=== PATIENT | male | born 1980 | race African-American/Black ===

== ENCOUNTER 2020-03-27 12:58 | Emergency (ER) | payer SELFPAY ==
[2020-03-27] MEDS ORDERED: cefTRIAXone 250 MG in Lidocaine 1% 1 ML IM ONE (13:23)
[2020-03-27] MEDS ORDERED: Azithromycin 250 MG Tab PO STA (13:23)
--- NOTE | 2020-03-27 13:30 | EDM.PDOC ---
ED HPI GENERAL MEDICAL PROBLEM - General Chief Complaint: Genitourinary Problem Stated Complaint: STD Time Seen by Provider: 03/27/20 13:09 Source of Information: Reports: Patient History Limitations: Reports: No Limitations - History of Present Illness INITIAL COMMENTS - FREE TEXT/NARRATIVE: HISTORY AND PHYSICAL: History of present illness: It is a 40-year-old male who presents to the emergency room with complaints of penile lesion and drainage. He states he had unprotected sex approximately a week ago and was informed a few days ago that his partner had herpes. He notic ed some painful lesions to the shaft of his penis. He is also concerned as he did notice some drainage from his penis, states it was minimal but is concerned of other STDs. Patient denies any fever, chills, headache, change in vision, syncope or near syncope. Denies any chest pain, back pain, shortness of breath or cough. Denies any abdominal pain, nausea, vomiting, diarrhea, constipation or dysuria. Has not noted any blood in urine or stool. He denies any testicular pain, redness or swelling. Patient has been eating and drinking appropriately. Review of systems: As per history of present illness and below otherwise all systems reviewed and negative. Past medical history: As per history of present illness and as reviewed below otherwise noncontributory. Surgical history: As per history of present illness and as reviewed below otherwise noncontributory. Social history: See social history for further information Family history: As per history of present illness and as reviewed below otherwise noncontributory. Physical exam: General: Well-developed and well-nourished 40-year-old -[place] male. Alert and oriented. Nontoxic-appearing and in no acute distress. Vital signs are stable and have been reviewed by me. HEENT: Atraumatic, normocephalic, pupils equal and reactive bilaterally, negative for conjunctival pallor or scleral icterus, mucous membranes moist, TMs normal bilaterally, throat clear, neck supple, nontender, trachea midline. No drooling or trismus noted. No meningeal signs. No hot potato voice noted. Lungs: Clear to auscultation, breath sounds equal bilaterally, chest nontender. Heart: S1S2, regular rate and rhythm without overt murmur Abdomen: Soft, nondistended, nontender. Genital: This was done with consent and a brand planner at the bedside. Patient does have few scattered open lesions to shaft of penis. A herpes culture was obtained and sent to the lab. There is no soft tissue swelling, redness or discharge noted on time of evaluation. Skin: See genital for details. Otherwise skin is intact, warm, dry. No lesions or rashes noted. Extremities: Atraumatic, moves all extremities per self without difficulty or deficits, negative for cords or calf pain. Neurovascular unremarkable. Neuro: Awake, alert, oriented. Cranial nerves II through XII unremarkable. Cerebellum unremarkable. Motor and sensory unremarkable throughout. Exam nonfocal. Notes: Discussed treating for gonorrhea/chlamydia versus waiting for culture reports to return -he will take the medication now. Prescription for Valtrex given with education for the need for follow-up. Supportive care measures were reviewed and discussed. Voices understanding and is agreeable to plan of care. Denies any further questions or concerns at this time. Diagnostics: Gonorrhea/chlamydia, herpes culture Therapeutics: Rocephin, azithromycin Prescription: Valtrex Impression: Penile lesion STD screening Plan: 1. Please abstain from sexual intercourse until the lab results have returned. Always use protection to minimized risk of STD exposure. Herpes is contagious so please make sure you are talking with partners before intimacy. You may take the Valtrex for outbreak lesions. If you have recurrent outbreaks your primary care provider can put you on Valtrex daily, to prevent outbreaks. 2. Take the medications as directed. The herpes, gonorrhea and chlamydia tests are send out labs, therefore will not be available for 3-4 business days. 3. Please follow-up with your primary care provider in the next 1-2 days. [facility] does offer free STD testing, please follow-up with them for further STD testing needs. Return to the ED as needed and as discussed. Definitive disposition and diagnosis as appropriate pending reevaluation and review of above. - Related Data Allergies Allergy/AdvReac Type Severity Reaction Status Date / Time ciprofloxacin [From Cipro] Allergy Anaphylactic Verified 03/27/20 13:34 Shock Home Meds: Home Meds valACYclovir [Valtrex] 1,000 mg PO BID 7 Days #14 tab 03/27/20 [Rx] Past Medical History - Infectious Disease History Infectious Disease History: Reports: None Social & Family History - Family History Family Medical History: Noncontributory ED ROS GENERAL - Review of Systems Review Of Systems: Comprehensive ROS is negative, except as noted in HPI. ED EXAM, RENAL/ - Physical Exam Exam: See Below (See dictation) Course - Vital Signs Last Recorded V/S: Last Vital Signs Temp 97.0 F 03/27/20 13:15 Pulse 71 03/27/20 13:15 Resp 18 03/27/20 13:15 BP 147/65 H 03/27/20 13:15 Pulse Ox 98 03/27/20 13:15 - Orders/Labs/Meds Orders: Active Orders 24 hr Category Date Time Status CHLAMYDIA AND GONORRHEA BY TMA Stat Lab 03/27/20 13:15 Received Meds: Medications Discontinued Medications Generic Name Dose Route Start Last Admin Trade Name Freq PRN Reason Stop Dose Admin Azithromycin 1,000 mg 03/27/20 13:23 03/27/20 13:34 Zithromax PO 03/27/20 13:24 1,000 mg NOW STA Administration Ceftriaxone Sodium 250 mg/ 1 mls @ 1 mls/sec 03/27/20 13:23 03/27/20 13:35 Lidocaine HCl IM 03/27/20 13:24 1 mls/sec ONETIME ONE Administration Departure - Departure Time of Disposition: 13:29 Disposition: Home, Self-Care 01 Clinical Impression: Penile lesion, Screening for STD (sexually transmitted disease) - Discharge Information Prescriptions: valACYclovir [Valtrex] 1,000 mg PO BID 7 Days #14 tab Instructions: Sexually Transmitted Disease, [id number] Referrals: PCP,None [Primary Care Provider] - Forms: ED Department Discharge Additional Instructions: The following information is given to patients seen in the emergency department who are being discharged to home. This information is to outline your options for follow-up care. We provide all patients seen in our emergency department with a follow-up referral. The need for follow-up, as well as the timing and circumstances, are variable depending upon the specifics of your emergency department visit. If you don't have a primary care physician on staff, we will provide you with a referral. We always advise you to contact your personal physician following an emergency department visit to inform them of the circumstance of the visit and for follow-up with them and/or the need for any referrals to a consulting specialist. The emergency department will also refer you to a specialist when appropriate. This referral assures that you have the opportunity for follow-up care with a specialist. All of these measure are taken in an effort to provide you with optimal care, which includes your follow-up. Under all circumstances we always encourage you to contact your private physician who remains a resource for coordinating your care. When calling for follow-up care, please make the office aware that this follow-up is from your recent emergency room visit. If for any reason you are refused follow-up, please contact the [facility] Emergency Department at and asked to speak to the emergency department charge nurse. [facility] [address] [place] [id number] [address] Thank you for choosing the [facility] emergency department in [facility] for your medical needs today. It was a pleasure caring for you. Today you were seen in the emergency department for penile lesion and STD testing. 1. Please abstain from sexual intercourse until the lab results have returned. Always use protection to minimized risk of STD exposure. Herpes is contagious so please make sure you are talking with partners before intimacy. You may take the Valtrex for outbreak lesions. If you have recurrent outbreaks your primary care provider can put you on Valtrex daily, to prevent outbreaks. 2. Take the medications as directed. The herpes, gonorrhea and chlamydia tests are send out labs, therefore will not be available for 3-4 business days. 3. Please follow-up with your primary care provider in the next 1-2 days. [facility] does offer free STD testing, please follow-up with them for further STD testing needs. Return to the ED as needed and as discussed. Sepsis Event Note (ED) - Evaluation Sepsis Screening Result: No Definite Risk - Focused Exam Vital Signs: Vital Signs Temp Pulse Resp BP Pulse Ox 03/27/20 13:15 97.0 F 71 18 147/65 H 98 - My Orders Last 24 Hours: My Active Orders 03/27/20 13:15 CHLAMYDIA AND GONORRHEA BY TMA Stat - Assessment/Plan Last 24 Hours: My Active Orders 03/27/20 13:15 CHLAMYDIA AND GONORRHEA BY TMA Stat
[2020-03-30 14:03] LABS: C.TRACHOMATIS BY TMA Negative (Negative); N.GONORRHOEAE BY TMA Negative (Negative)
== END 2020-03-27 13:53 | disposition home or self-care (01) ==
LOC: MW.ED 12:58
DX: L98.8 Other specified disorders of the skin and subcutaneous tissue (principal); Z20.2 Contact with and (suspected) exposure to infections with a predominantly sexual mode of transmission; Z88.1 Allergy status to other antibiotic agents
CPT/HCPCS: 87491; 87529; 87591; 96374; 99283; A9270; J0696; J2001; 99282

== ENCOUNTER 2020-04-30 11:16 | Emergency (ER) | payer SELFPAY ==
--- NOTE | 2020-04-30 12:01 | EDM.PDOC ---
ED HPI GENERAL MEDICAL PROBLEM - General Chief Complaint: Genitourinary Problem Stated Complaint: PAIN IN GENITALS Time Seen by Provider: 04/30/20 11:18 Source of Information: Reports: Patient History Limitations: Reports: No Limitations - History of Present Illness INITIAL COMMENTS - FREE TEXT/NARRATIVE: HISTORY AND PHYSICAL: History of present illness: Patient is a 40-year-old male who presents to the ED today with concern of penile lesions over the past 2 days. Patient states he has been seen for this before and was tested for herpes but states that at that time his test was negative. Patient states that he did not have any blood drawn but had the lesions swabbed and it came back negative for herpes. Patient states that he was given a medication anyway and that the lesions went away after starting the medication. Patient states he does believe that it is herpes as it is painful to the touch and has returned. Patient denies any penile drainage or scrotal tenderness. Patient denies fever, chills, chest pain, shortness of breath, or cough. Denies headache, neck stiff ness, change in vision, syncope, or near syncope. Denies nausea, vomiting, abdominal pain, diarrhea, constipation, or dysuria. Has not noted any blood in urine or stool. Patient has been eating and drinking appropriately. Review of systems: As per history of present illness and below otherwise all systems reviewed and negative. Past medical history: As per history of present illness and as reviewed below otherwise noncontributory. Surgical history: As per history of present illness and as reviewed below otherwise noncontributory. Social history: See social history for further information Family history: As per history of present illness and as reviewed below otherwise non contributory. Physical exam: General: Patient is alert, oriented, and in no acute distress. Patient sitting comfortably on exam table. HEENT: Atraumatic, normocephalic, pupils equal and reactive bilaterally, negative for conjunctival pallor or scleral icterus, mucous membranes moist, TMs normal bilaterally, throat clear, neck supple, nontender, trachea midline. No drooling or trismus noted. No meningeal signs. No hot potato voice noted. Lungs: Clear to auscultation, breath sounds equal bilaterally, chest nontender. Heart: S1S2, regular rate and rhythm without overt murmur Abdomen: Soft, nondistended, nontender. Negative for masses or hepatosplenomegaly. Negative for costovertebral tenderness. Pelvis: Stable nontender. Genitourinary: Agency Operator at bedside Oumou Espino. There are several 1-2mm blister lesions at the base of the distal shaft that are painful to palpation. No penile drainage, masses, scrotal tenderness. Rectal: Deferred. Skin: Intact, warm, dry. No lesions or rashes noted. Extremities: Atraumatic, negative for cords or calf pain. Neurovascular unremarkable. Neuro: Awake, alert, oriented. Cranial nerves II through XII unremarkable. Cerebellum unremarkable. Motor and sensory unremarkable throughout. Exam nonfocal. Notes: Discussed importance for follow-up with a primary care provider. Discussed with patient if that he desires additional STD screening, he can have this done with his primary care provider or at the [facility]. The numbers have been provided to him to call and establish an appointment time. Also discussed with patient to abstain from sexual intercourse until all labs have returned. Voices understanding and is agreeable to plan of care. Denies any further questions or concerns at this time. Diagnostics: HSV IgM Types 1 and 2, HSV amplification Therapeutics: None Prescription: Acyclovir Impression: Penile lesions Plan: 1. Take medication as prescribed. You can alternate ibuprofen and Tylenol as directed for pain and discomfort. 2. Follow-up with a primary care provider as discussed. Return to the ED as needed and as discussed. 3. If you desire additional STD screening, you can get this done with your primary care provider or at the [facility]. 4. Refrain from sexual intercourse until labs return as discussed. Definitive disposition and diagnosis as appropriate pending reevaluation and review of above. - Related Data Allergies Allergy/AdvReac Type Severity Reaction Status Date / Time ciprofloxacin [From Cipro] Allergy Anaphylactic Verified 03/27/20 13:34 Shock Home Meds: Home Meds Acyclovir 800 mg PO TID 2 Days #6 tablet 04/30/20 [Rx] Past Medical History Genitourinary History: Reports: STD - Infectious Disease History Infectious Disease History: Reports: Chicken Pox Social & Family History - Family History Family Medical History: Noncontributory - Tobacco Use Smoking Status *Q: Never Smoker Second Hand Smoke Exposure: No - Recreational Drug Use Drug Use in Last 12 Months: No ED ROS GENERAL - Review of Systems Review Of Systems: Comprehensive ROS is negative, except as noted in HPI. ED EXAM, GENERAL - Physical Exam Exam: See Below (see dictation) Course - Vital Signs Last Recorded V/S: Last Vital Signs Temp 97.3 F 04/30/20 11:31 Pulse 79 04/30/20 11:31 Resp 18 04/30/20 11:31 BP 130/88 04/30/20 11:31 Pulse Ox 97 04/30/20 11:31 - Orders/Labs/Meds Orders: Active Orders 24 hr Category Date Time Status HSV 1/2 PCR [REF] Stat Lab 04/30/20 11:49 Ordered HSV, TYPES 1 & 2, IGM AB, IND [REF] Stat Lab 04/30/20 11:49 Ordered Departure - Departure Time of Disposition: 11:55 Disposition: Home, Self-Care 01 Clinical Impression: Penile lesion - Discharge Information Referrals: PCP,None [Primary Care Provider] - Additional Instructions: The following information is given to patients seen in the emergency department who are being discharged to home. This information is to outline your options for follow-up care. We provide all patients seen in our emergency department with a follow-up referral. The need for follow-up, as well as the timing and circumstances, are variable depending upon the specifics of your emergency department visit. If you don't have a primary care physician on staff, we will provide you with a referral. We always advise you to contact your personal physician following an emergency department visit to inform them of the circumstance of the visit and for follow-up with them and/or the need for any referrals to a consulting specialist. The emergency department will also refer you to a specialist when appropriate. This referral assures that you have the opportunity for follow-up care with a specialist. All of these measure are taken in an effort to provide you with opt imal care, which includes your follow-up. Under all circumstances we always encourage you to contact your private physician who remains a resource for coordinating your care. When calling for follow-up care, please make the office aware that this follow-up is from your recent emergency room visit. If for any reason you are refused follow-up, please contact the [facility] Emergency Department at and asked to speak to the emergency department charge nurse. [facility] [address] [place] [address] [place] [address] [facility] [address] [place] [address] [facility] [address] [place] [address] 1. Take medication as prescribed. You can alternate ibuprofen and Tylenol as directed for pain and discomfort. 2. Follow-up with a primary care provider as discussed. Return to the ED as needed and as discussed. 3. If you desire additional STD screening, you can get this done with your primary care provider or at the [facility]. 4. Refrain from sexual intercourse until labs return as discussed. Sepsis Event Note (ED) - Evaluation Sepsis Screening Result: No Definite Risk - Focused Exam Vital Signs: Vital Signs Temp Pulse Resp BP Pulse Ox 04/30/20 11:31 97.3 F 79 18 130/88 97 - My Orders Last 24 Hours: My Active Orders 04/30/20 11:49 HSV 1/2 PCR [REF] Stat HSV, TYPES 1 & 2, IGM AB, IND [REF] Stat - Assessment/Plan Last 24 Hours: My Active Orders 04/30/20 11:49 HSV 1/2 PCR [REF] Stat HSV, TYPES 1 & 2, IGM AB, IND [REF] Stat
== END 2020-04-30 12:15 | disposition home or self-care (01) ==
LOC: MW.ED 11:16
DX: N48.89 Other specified disorders of penis (principal)
CPT/HCPCS: 86695; 86696; 87529; 99282; 99283